=== PATIENT | female | born 1985 | race Asian ===

== ENCOUNTER 2019-01-26 14:06 | Inpatient (IN) | payer BC ==
[~2019-01-26] VITALS: Ht 154.9 cm; Wt 88.6 kg
[~2019-01-26 14:06] MED LIST: ACET-1600 PO; CALC300T5 PO; PREN1TAB10 PO
[2019-01-26 15:40] LABS: MICROSCOPIC NOT IND
[2019-01-26 15:50] LABS: CREATININE,URINE RANDOM 19.1 mg/dL
[2019-01-26 16:11] VITALS: BP 150/70
[2019-01-26 16:13] LABS: BASOPHILS # (AUTO) 0.03 x10^3/uL (0-0.1); BASOPHILS % (AUTO) 0 % (0-1); EOSINOPHILS # (AUTO) 0.03 x10^3/uL (0-0.4); EOSINOPHILS % (AUTO) 0 % (1-7); LYMPHOCYTES # (AUTO) 2.12 x10^3/uL (1-3.4); LYMPHOCYTES % (AUTO) 22 % (22-44); MD NO; MEAN CORPUSCULAR HEMOGLOBIN 33.8 pg (27.0-34.8); MEAN CORPUSCULAR HGB CONC 33.6 g/dL (32.4-35.8); MEAN CORPUSCULAR VOLUME 100.6 fL (80-100); MEAN PLATELET VOLUME 7.8 fL (7.4-10.4); MONOCYTES # (AUTO) 0.83 x10^3/uL (0.2-0.8); MONOCYTES % (AUTO) 8 % (2-9); NEUTROPHILS # (AUTO) 6.86 x10^3/uL (1.8-6.8); NEUTROPHILS % (AUTO) 70 % (42-75); PLATELET COUNT 273 x10^3/uL (130-400); RED BLOOD COUNT 3.62 x10^6/uL (3.82-5.3); RED CELL DISTRIBUTION WIDTH 14.1 % (9.6-15.2)
[2019-01-26 16:20] LABS: ALANINE AMINOTRANSFERASE 16 U/L (12-78); ALBUMIN 2.4 g/dL (3.4-5.0); ANION GAP 9 mmol/L (5-15); CALCIUM 8.5 mg/dL (8.5-10.1); CHLORIDE 112 mmol/L (98-107); CREATININE 0.64 mg/dL (0.55-1.02)
[2019-01-26 16:29] LABS: ALKALINE PHOSPHATASE 88 U/L (45-117); BILIRUBIN,TOTAL 0.5 mg/dL (0.2-1.0)
[2019-01-26 16:30] LABS: BILIRUBIN, DIRECT < 0.1 mg/dL (0.1-0.2)
[2019-01-26] MEDS ORDERED: BETAMETHASONE 6 MG/ML, 5ML IM ONE ×2 (17:59→18:00)
[2019-01-26] MEDS ORDERED: LABETALOL 100 MG TABLET ONE (22:54)
[2019-01-26] MEDS: LABETALOL 100 MG TABLET PO SCH (22:57)
[2019-01-27 07:35] VITALS: BP 139/76
[2019-01-27 07:39] LABS: BASOPHILS % (AUTO) 0 % (0-1); EOSINOPHILS % (AUTO) 0 % (1-7); LYMPHOCYTES # (AUTO) 1.34 x10^3/uL (1-3.4); LYMPHOCYTES % (AUTO) 11 % (22-44); MD NO; MEAN CORPUSCULAR HGB CONC 33.6 g/dL (32.4-35.8); MEAN CORPUSCULAR VOLUME 101.2 fL (80-100); MONOCYTES # (AUTO) 0.38 x10^3/uL (0.2-0.8); MONOCYTES % (AUTO) 3 % (2-9); NEUTROPHILS # (AUTO) 10.49 x10^3/uL (1.8-6.8); NEUTROPHILS % (AUTO) 86 % (42-75); PLATELET COUNT 272 x10^3/uL (130-400); RED BLOOD COUNT 3.77 x10^6/uL (3.82-5.3); RED CELL DISTRIBUTION WIDTH 13.9 % (9.6-15.2)
[2019-01-27 07:47] LABS: CHLORIDE 111 mmol/L (98-107)
[2019-01-27 07:55] LABS: ALANINE AMINOTRANSFERASE 13 U/L (12-78); ALBUMIN 2.3 g/dL (3.4-5.0); ALKALINE PHOSPHATASE 86 U/L (45-117); ANION GAP 9 mmol/L (5-15); BILIRUBIN,TOTAL < 0.1 mg/dL (0.2-1.0); CALCIUM 8.6 mg/dL (8.5-10.1); CREATININE 0.61 mg/dL (0.55-1.02); TOTAL PROTEIN 5.9 g/dL (6.4-8.2)
[2019-01-27] MEDS ORDERED: LABETALOL 100 MG TABLET ONE ×2 (08:42→21:00)
[2019-01-27] MEDS: LABETALOL 100 MG TABLET PO SCH ×2 (08:46→21:02)
[2019-01-27] MEDS ORDERED: PRENATAL VIT/IRON/FA 1 EACH TABLET ONE (21:23)
[2019-01-27] MEDS ORDERED: DOCUSATE 100 MG CAPSULE ONE (21:24)
[2019-01-27] MEDS ORDERED: DOCUSATE 100 MG CAPSULE PO SCH (21:30)
[2019-01-27] MEDS ORDERED: PRENATAL VIT/IRON/FA 1 EACH TABLET PO SCH (21:30)
[2019-01-28] MEDS ORDERED: CALCIUM CARBONATE 500 MG TAB.CHEW PO PRN (03:30)
== END 2019-01-28 07:04 | disposition home or self-care (01) | DRG 833 ==
LOC: LDOP 14:06 → LDIP 17:43 → UNDOADMIN 17:51 → EDIP 01-27 17:29 → LDIP 01-27 17:31
PROVIDERS: ADMIT Obstetrics & Gynecology; ATTEND Obstetrics & Gynecology
DX: O13.3 Gestational [pregnancy-induced] hypertension without significant proteinuria, third trimester (principal); E78.00 Pure hypercholesterolemia, unspecified; F17.200 Nicotine dependence, unspecified, uncomplicated; O99.283 Endocrine, nutritional and metabolic diseases complicating pregnancy, third trimester; O99.333 Smoking (tobacco) complicating pregnancy, third trimester; Z3A.35 35 weeks gestation of pregnancy; Z90.49 Acquired absence of other specified parts of digestive tract
CPT/HCPCS: 36415; 76815; 76819; 80053; 81003; 81050; 82248; 82570; 84156; 84550; 85025; 86850; 86900; G0378; J0702

== ENCOUNTER 2019-02-02 08:33 | Inpatient (IN) | payer BC, OTHER ==
[~2019-02-02] VITALS: Ht 154.9 cm; Wt 90.0 kg
[2019-02-03] MEDS ORDERED: MISOPROSTOL 25 MCG TABLET ONE (21:06)
[2019-02-03] MEDS ORDERED: OXYTOCIN 30U/ 0.9% NaCL 500ML 500 ML IV ONE (21:08)
[2019-02-03] MEDS: D5%-LACTATED RINGERS 1,000 ML IV SCH (21:08)
[2019-02-03] MEDS ORDERED: OXYTOCIN 30U/ 0.9% NaCL 500ML 500 ML IV PRN (21:08)
[2019-02-03] MEDS ORDERED: NEWBORN KIT ONE (21:10)
[2019-02-03] MEDS ORDERED: LIDOCAINE 1%, 20ML ONE (21:11)
[2019-02-03] MEDS ORDERED: MISOPROSTOL 200 MCG TABLET ONE (21:11)
[2019-02-03 21:28] LABS: BASOPHILS # (AUTO) 0.03 x10^3/uL (0-0.1); BASOPHILS % (AUTO) 0 % (0-1); EOSINOPHILS % (AUTO) 2 % (1-7); LYMPHOCYTES # (AUTO) 2.54 x10^3/uL (1-3.4); LYMPHOCYTES % (AUTO) 23 % (22-44); MD NO; MEAN CORPUSCULAR HEMOGLOBIN 33.9 pg (27.0-34.8); MEAN CORPUSCULAR HGB CONC 33.5 g/dL (32.4-35.8); MEAN CORPUSCULAR VOLUME 101.4 fL (80-100); MEAN PLATELET VOLUME 7.7 fL (7.4-10.4); MONOCYTES # (AUTO) 0.71 x10^3/uL (0.2-0.8); MONOCYTES % (AUTO) 7 % (2-9); NEUTROPHILS # (AUTO) 7.36 x10^3/uL (1.8-6.8); NEUTROPHILS % (AUTO) 68 % (42-75); PLATELET COUNT 237 x10^3/uL (130-400); RED BLOOD COUNT 3.93 x10^6/uL (3.82-5.3); RED CELL DISTRIBUTION WIDTH 14.3 % (9.6-15.2)
[2019-02-03 21:30] VITALS: BP 178/91
[2019-02-03] MEDS ORDERED: PLEASE ENTER HEIGHT AND WEIGHT MC SCH (21:30)
[2019-02-03] MEDS ORDERED: FENTANYL PF 100 MCG/2ML IVPush PRN (21:30)
[2019-02-03] MEDS ORDERED: MISOPROSTOL 25 MCG TABLET VG PRN (21:30)
[2019-02-03] MEDS ORDERED: ONDANSETRON 2MG/ML, 2ML IVPush PRN (21:30)
[2019-02-03] MEDS ORDERED: FENTANYL PF 100 MCG/2ML IV PRN (21:30)
[2019-02-03] MEDS ORDERED: CALCIUM CARBONATE 500 MG TAB.CHEW PO PRN (21:30)
[2019-02-03] MEDS ORDERED: LABETALOL 100 MG TABLET ONE (21:43)
[2019-02-03] MEDS: LACTATED RINGERS 1,000 ML IV SCH (21:45)
[2019-02-03] MEDS: LABETALOL 100 MG TABLET PO SCH (21:46)
[2019-02-03 23:04] VITALS: BP 157/75
[2019-02-04] MEDS ORDERED: OXYTOCIN 30U/ 0.9% NaCL 500ML 500 ML IV PRN (02:01)
[2019-02-04] MEDS ORDERED: OXYTOCIN 30U/ 0.9% NaCL 500ML 500 ML ONE (02:03)
[2019-02-04] MEDS: D5%-LACTATED RINGERS 1,000 ML IV SCH (05:08)
[2019-02-04] MEDS: LACTATED RINGERS 1,000 ML IV SCH ×3 (05:55→19:58)
[2019-02-04] MEDS ORDERED: FENTANYL/BUPIV./NS/PF 250 ML EPIDCONT SCH ×2 (08:03→08:49)
[2019-02-04] MEDS ORDERED: FENTANYL PF 500 MCG, BUPIVACAINE/PF 0.5%, 30ML 62.5 ML in SODIUM CHLORIDE 0.9% 177.5 ML EPIDCONT SCH (08:30)
[2019-02-04] MEDS ORDERED: LACTATED RINGERS 1,000 ML IV SCH (08:49)
[2019-02-04] MEDS ORDERED: LABETALOL 100 MG TABLET ONE ×2 (08:53→16:53)
[2019-02-04] MEDS: LABETALOL 100 MG TABLET PO SCH ×2 (08:55→16:57)
[2019-02-04] MEDS ORDERED: BUPIVACAINE 0.25% ONE (08:55)
[2019-02-04] MEDS ORDERED: NALOXONE 0.4 MG/ML, 1ML IVPush PRN (09:00)
[2019-02-04] MEDS ORDERED: EPHEDRINE 50 MG/ML, 1ML IVPush PRN ×2 (09:00→19:30)
[2019-02-04] MEDS: LACTATED RINGERS 1,000 ML IVBOLUS PRN ×2 (09:46→19:04)
[2019-02-04] MEDS ORDERED: hydrALAzine 20 MG/ML, 1ML IVPush ONE (10:00)
[2019-02-04] MEDS ORDERED: SODIUM CITRATE/CITRIC ACID 15 ML UDC ONE (18:42)
[2019-02-04] MEDS ORDERED: METOCLOPRAMIDE 5 MG/ML, 2ML ONE (18:43)
[2019-02-04] MEDS ORDERED: METOCLOPRAMIDE 5 MG/ML, 2ML IV ONE (19:00)
[2019-02-04] MEDS ORDERED: SODIUM CITRATE/CITRIC ACID 15 ML UDC PO ONE (19:00)
[2019-02-04] MEDS ORDERED: KETOROLAC 30 MG/1 ML ONE (19:07)
[2019-02-04] MEDS ORDERED: PROPOFOL 10 MG/ML, 20ML ONE (19:07)
[2019-02-04] MEDS ORDERED: EPHEDRINE 50 MG/ML, 1ML ONE (19:07)
[2019-02-04] MEDS ORDERED: ONDANSETRON 2MG/ML, 2ML ONE (19:07)
[2019-02-04] MEDS ORDERED: DEXAMETHASONE 4 MG/ML, 1ML ONE (19:07)
[2019-02-04] MEDS ORDERED: PHENYLEPHRINE 10 MG/ML ONE (19:07)
[2019-02-04] MEDS ORDERED: CEFAZOLIN 1,000 MG ONE (19:07)
[2019-02-04] MEDS ORDERED: OXYTOCIN 10 UNITS/ML, 1ML ONE (19:07)
[2019-02-04] MEDS ORDERED: SUCCINYLCHOLINE 20 MG/ML, 10ML ONE (19:07)
[2019-02-04] MEDS ORDERED: FENTANYL PF 100 MCG/2ML ONE ×2 (19:07)
[2019-02-04] MEDS ORDERED: hydrALAzine 20 MG/ML, 1ML IV PRN (19:30)
[2019-02-04] MEDS ORDERED: MIDAZOLAM 1 MG/ML, 2ML IV PRN (19:30)
[2019-02-04] MEDS ORDERED: ONDANSETRON 2MG/ML, 2ML IVPush PRN (19:30)
[2019-02-04] MEDS ORDERED: HYDROmorphone 2 MG/ML, 1ML IVPush PRN (19:30)
[2019-02-04] MEDS ORDERED: ALBUTEROL SULFATE 2.5 MG/3 ML NPPB PRN (19:30)
[2019-02-04] MEDS ORDERED: FENTANYL PF 100 MCG/2ML IV PRN (19:30)
[2019-02-04] MEDS ORDERED: hydrALAzine 20 MG/ML, 1ML IVPush PRN (19:30)
[2019-02-04] MEDS ORDERED: LABETALOL 5MG/ML, 20ML IV PRN (19:30)
[2019-02-04] MEDS ORDERED: MEPERIDINE/PF 25MG/0.5ML IVPush PRN (19:30)
[2019-02-04] MEDS ORDERED: HYDROcodone/APAP 7.5-325MG/15ML UDC PO PRN (19:30)
[2019-02-04] MEDS ORDERED: PROMETHAZINE 25 MG/ML, 1ML IV PRN (19:30)
[2019-02-04] MEDS ORDERED: HYDROmorphone 2 MG/ML, 1ML ONE (19:49)
[2019-02-04] MEDS: OXYTOCIN 30U/ 0.9% NaCL 500ML 500 ML IV SCH (19:58)
[2019-02-04] MEDS ORDERED: MORPHINE SULFATE 4 MG/ML, 1ML IVPush PRN (20:00)
[2019-02-04] MEDS ORDERED: MISOPROSTOL 200 MCG TABLET PR PRN (20:00)
[2019-02-04] MEDS ORDERED: ONDANSETRON 2MG/ML, 2ML IV PRN (20:00)
[2019-02-04] MEDS ORDERED: MAGNESIUM SULFATE PMX 4GM/100M 100 ML ONE (20:54)
[2019-02-04] MEDS ORDERED: MAGNESIUM SULF. PMX 20GM/500ML 500 ML IV ONE (20:54)
[2019-02-04] MEDS ORDERED: MAGNESIUM SULFATE PMX 4GM/100M 100 ML IVPB ONE (21:00)
[2019-02-04] MEDS ORDERED: DEXTROSE 40%, 37.5 GM GEL ONE (21:15)
[2019-02-04] MEDS: MAGNESIUM SULF. PMX 20GM/500ML 500 ML IV SCH (21:43)
[2019-02-04] MEDS ORDERED: hydrALAzine 20 MG/ML, 1ML ONE (22:40)
[2019-02-04] MEDS ORDERED: OXYcodone 5 MG/5 ML ORAL.SOL UDC ONE (23:29)
[2019-02-04] MEDS: OXYcodone 5 MG/5 ML ORAL.SOL UDC PO PRN (23:32)
[2019-02-05] MEDS ORDERED: LABETALOL 100 MG TABLET ONE ×3 (01:50→16:38)
[2019-02-05] MEDS: LABETALOL 100 MG TABLET PO SCH ×3 (01:56→16:58)
[2019-02-05] MEDS: KETOROLAC 30 MG/1 ML IV SCH ×4 (02:00→18:02)
[2019-02-05] MEDS ORDERED: OXYcodone 5 MG/5 ML ORAL.SOL UDC ONE (02:46)
[2019-02-05] MEDS: OXYcodone 5 MG/5 ML ORAL.SOL UDC PO PRN (02:48)
[2019-02-05] MEDS: LACTATED RINGERS 1,000 ML IV SCH ×6 (03:58→19:58)
[2019-02-05] MEDS ORDERED: KETOROLAC 30 MG/1 ML ONE ×3 (05:48→17:57)
[2019-02-05 05:54] LABS: BASOPHILS # (AUTO) 0.01 x10^3/uL (0-0.1); BASOPHILS % (AUTO) 0 % (0-1); EOSINOPHILS % (AUTO) 0 % (1-7); LYMPHOCYTES # (AUTO) 1.78 x10^3/uL (1-3.4); LYMPHOCYTES % (AUTO) 11 % (22-44); MD NO; MEAN CORPUSCULAR HEMOGLOBIN 34.5 pg (27.0-34.8); MEAN CORPUSCULAR HGB CONC 34.1 g/dL (32.4-35.8); MEAN CORPUSCULAR VOLUME 101.2 fL (80-100); MEAN PLATELET VOLUME 7.5 fL (7.4-10.4); MONOCYTES # (AUTO) 0.82 x10^3/uL (0.2-0.8); MONOCYTES % (AUTO) 5 % (2-9); NEUTROPHILS # (AUTO) 13.14 x10^3/uL (1.8-6.8); NEUTROPHILS % (AUTO) 84 % (42-75); PLATELET COUNT 204 x10^3/uL (130-400); RED CELL DISTRIBUTION WIDTH 14.3 % (9.6-15.2)
[2019-02-05] MEDS: OXYTOCIN 30U/ 0.9% NaCL 500ML 500 ML IV SCH ×2 (05:58→15:58)
[2019-02-05] MEDS ORDERED: OXYcodone/APAP 5/325MG TABLET ONE ×2 (07:45→15:39)
[2019-02-05] MEDS ORDERED: DOCUSATE 100 MG CAPSULE ONE ×2 (07:46→20:24)
[2019-02-05] MEDS ORDERED: MAGNESIUM SULF. PMX 20GM/500ML 500 ML IV ONE ×2 (07:46→17:57)
[2019-02-05] MEDS ORDERED: PRENATAL VIT/IRON/FA 1 EACH TABLET ONE (07:46)
[2019-02-05] MEDS: MAGNESIUM SULF. PMX 20GM/500ML 500 ML IV SCH ×2 (07:49→18:02)
[2019-02-05] MEDS: DOCUSATE 100 MG CAPSULE PO PRN ×2 (07:49→21:01)
[2019-02-05] MEDS: PRENATAL VIT/IRON/FA 1 EACH TABLET PO SCH (07:49)
[2019-02-05] MEDS: OXYcodone/APAP 5/325MG TABLET PO PRN ×3 (07:49→23:45)
[2019-02-05 07:51] VITALS: BP 138/67
[2019-02-05 21:00] VITALS: BP 113/70
[2019-02-06] VITALS (7 sets, daily range): BP systolic 117–158; BP diastolic 65–85
[2019-02-06] MEDS: OXYcodone/APAP 5/325MG TABLET PO PRN ×5 (00:05→20:56)
[2019-02-06] MEDS: KETOROLAC 30 MG/1 ML IV SCH ×4 (01:08→13:33)
[2019-02-06] MEDS: LABETALOL 100 MG TABLET PO SCH ×3 (01:08→20:56)
[2019-02-06] MEDS: OXYTOCIN 30U/ 0.9% NaCL 500ML 500 ML IV SCH ×3 (01:58→21:58)
[2019-02-06] MEDS: LACTATED RINGERS 1,000 ML IV SCH ×3 (01:58→21:58)
[2019-02-06] MEDS: MAGNESIUM SULF. PMX 20GM/500ML 500 ML IV SCH (02:37)
[2019-02-06] MEDS: PRENATAL VIT/IRON/FA 1 EACH TABLET PO SCH (09:36)
[2019-02-06] MEDS: DOCUSATE 100 MG CAPSULE PO PRN ×2 (09:36→19:51)
[2019-02-06] MEDS: IBUPROFEN 600 MG TABLET PO PRN (19:51)
[2019-02-07] VITALS (9 sets, daily range): BP systolic 129–161; BP diastolic 75–91
[2019-02-07] MEDS: OXYcodone/APAP 5/325MG TABLET PO PRN ×3 (01:19→04:59)
[2019-02-07] MEDS: IBUPROFEN 600 MG TABLET PO PRN (01:19)
[2019-02-07] MEDS: OXYTOCIN 30U/ 0.9% NaCL 500ML 500 ML IV SCH ×2 (07:58→17:58)
[2019-02-07] MEDS: LACTATED RINGERS 1,000 ML IV SCH ×2 (07:58→17:58)
[2019-02-07] MEDS: PRENATAL VIT/IRON/FA 1 EACH TABLET PO SCH (08:56)
[2019-02-07] MEDS: LABETALOL 100 MG TABLET PO SCH ×2 (08:56→21:06)
[2019-02-07] MEDS: ACETAMINOPHEN 325 MG TABLET PO PRN ×3 (08:56→18:35)
[2019-02-07] MEDS: DOCUSATE 100 MG CAPSULE PO PRN ×2 (08:56→21:06)
[2019-02-07] MEDS: OXYcodone IR 5MG TABLET PO PRN ×4 (08:56→22:48)
[2019-02-07] MEDS ORDERED: SIMETHICONE 80 MG CHEW TAB ONE (22:47)
[2019-02-07] MEDS: SIMETHICONE 80 MG CHEW TAB PO PRN (22:48)
[2019-02-08] VITALS (7 sets, daily range): BP systolic 120–176; BP diastolic 67–95
[2019-02-08] MEDS: ACETAMINOPHEN 325 MG TABLET PO PRN ×4 (02:39→16:14)
[2019-02-08] MEDS: OXYcodone IR 5MG TABLET PO PRN ×5 (02:39→21:16)
[2019-02-08] MEDS: LACTATED RINGERS 1,000 ML IV SCH ×3 (03:58→23:58)
[2019-02-08] MEDS: OXYTOCIN 30U/ 0.9% NaCL 500ML 500 ML IV SCH ×2 (03:58→13:58)
[2019-02-08] MEDS: SIMETHICONE 80 MG CHEW TAB PO PRN (06:08)
[2019-02-08] MEDS: DOCUSATE 100 MG CAPSULE PO PRN (07:39)
[2019-02-08] MEDS: LABETALOL 100 MG TABLET PO SCH ×3 (07:39→23:38)
[2019-02-08] MEDS: PRENATAL VIT/IRON/FA 1 EACH TABLET PO SCH (07:39)
[2019-02-08] MEDS ORDERED: niFEDipine ER 30 MG TABLET.ER ONE (14:43)
[2019-02-08] MEDS: niFEDipine ER 30 MG TABLET.ER PO SCH (15:02)
[2019-02-08] MEDS: IBUPROFEN 600 MG TABLET PO PRN (19:48)
[2019-02-09] MEDS: OXYTOCIN 30U/ 0.9% NaCL 500ML 500 ML IV SCH (02:10)
[2019-02-09] MEDS: IBUPROFEN 600 MG TABLET PO PRN ×2 (04:40→14:05)
[2019-02-09 04:42] VITALS: BP 134/86
[2019-02-09 07:30] VITALS: BP 145/70
[2019-02-09] MEDS: DOCUSATE 100 MG CAPSULE PO PRN (08:07)
[2019-02-09] MEDS: niFEDipine ER 30 MG TABLET.ER PO SCH (08:07)
[2019-02-09] MEDS: PRENATAL VIT/IRON/FA 1 EACH TABLET PO SCH (08:07)
[2019-02-09] MEDS: LABETALOL 100 MG TABLET PO SCH (08:07)
[2019-02-09] MEDS ORDERED: OXYcodone IR 5MG TABLET ONE (08:12)
[2019-02-09] MEDS: OXYcodone IR 5MG TABLET PO PRN (08:14)
[2019-02-09 12:21] VITALS: BP 119/78
[2019-02-09] MEDS: OXYcodone/APAP 5/325MG TABLET PO PRN (12:36)
[2019-02-09] MEDS ORDERED: IBUP-1222 PO (12:50)
[2019-02-09] MEDS ORDERED: OXYC-302 PO (12:50)
[2019-02-09] MEDS ORDERED: LABE100T6 PO (12:51)
[2019-02-09] MEDS ORDERED: NIFE30TA2 PO (12:53)
== END 2019-02-09 18:26 | disposition home or self-care (01) | DRG 788 ==
LOC: UNDOADMIN 08:33 → LDIP 08:33 → 2NE 02-04 21:53 → 2NW 02-05 23:09
PROVIDERS: ADMIT Obstetrics & Gynecology; ATTEND Obstetrics & Gynecology
PROC: 10D00Z1 Extraction of Products of Conception, Low, Open Approach (ICD-10-PCS; principal; 2019-02-04)
DX: O14.94 Unspecified pre-eclampsia, complicating childbirth (principal); O61.9 Failed induction of labor, unspecified; E16.2 Hypoglycemia, unspecified; O99.285 Endocrine, nutritional and metabolic diseases complicating the puerperium; Z37.0 Single live birth; Z3A.37 37 weeks gestation of pregnancy; Z88.0 Allergy status to penicillin; Z88.6 Allergy status to analgesic agent
CPT/HCPCS: 36415; S0020; 83735; 85025; 86850; 86900; G0378; J0690; J1100; J1170; J1885; J2405; J2704; J3010; J0330; J0360; J2370; J2590; J2765; J3475; J7050; J7120

== ENCOUNTER 2020-03-23 10:04 | Inpatient (IN) | payer BC ==
[~2020-03-23] VITALS: Ht 154.9 cm; Wt 92.4 kg
[~2020-03-23 10:04] MED LIST changes: +IBUP-1222 PO; +LABE100T6 PO; +NIFE30TA2 PO; +OXYC-302 PO
[2020-03-23 10:43] VITALS: BP 107/56
[2020-03-23] MEDS ORDERED: PREN1TAB60 PO (11:00)
[2020-03-23] MEDS ORDERED: ASPI-515 PO (11:00)
[2020-03-23] MEDS ORDERED: ACETAMINOPHEN 325 MG TABLET PO STA (11:05)
[2020-03-23 11:07] LABS: MICROSCOPIC NOT IND
[2020-03-23] MEDS ORDERED: ACETAMINOPHEN 325 MG TABLET ONE (11:12)
[2020-03-23 11:14] LABS: BASOPHILS # (AUTO) 0.03 x10^3/uL (0-0.1); BASOPHILS % (AUTO) 0 % (0-1); EOSINOPHILS # (AUTO) 0.26 x10^3/uL (0-0.4); EOSINOPHILS % (AUTO) 3 % (1-7); LYMPHOCYTES # (AUTO) 1.88 x10^3/uL (1-3.4); LYMPHOCYTES % (AUTO) 18 % (22-44); MD NO; MEAN CORPUSCULAR HEMOGLOBIN 31.9 pg (27.0-34.8); MEAN CORPUSCULAR HGB CONC 33.5 g/dL (32.4-35.8); MEAN PLATELET VOLUME 6.8 fL (7.4-10.4); MONOCYTES # (AUTO) 0.58 x10^3/uL (0.2-0.8); MONOCYTES % (AUTO) 6 % (2-9); NEUTROPHILS # (AUTO) 7.71 x10^3/uL (1.8-6.8); NEUTROPHILS % (AUTO) 74 % (42-75); PLATELET COUNT 332 x10^3/uL (130-400); RED BLOOD COUNT 3.58 x10^6/uL (3.82-5.3); RED CELL DISTRIBUTION WIDTH 13.8 % (9.6-15.2)
[2020-03-23 11:22] LABS: ALANINE AMINOTRANSFERASE 11 U/L (12-78); ALBUMIN 2.6 g/dL (3.4-5.0); ANION GAP 7 mmol/L (5-15); CALCIUM 8.9 mg/dL (8.5-10.1); CHLORIDE 110 mmol/L (98-107); CREATININE 0.48 mg/dL (0.55-1.02)
[2020-03-23 11:24] LABS: ALKALINE PHOSPHATASE 92 U/L (45-117); BILIRUBIN,TOTAL 0.2 mg/dL (0.2-1.0); TOTAL PROTEIN 6.6 g/dL (6.4-8.2)
[2020-03-23 12:13] LABS: CREATININE,URINE RANDOM 23.3 mg/dL
[2020-03-23 13:55] VITALS: BP 114/59
[2020-03-23 14:00] VITALS: BP 111/59
[2020-03-23] MEDS ORDERED: ACETAMINOPHEN 325 MG TABLET PO PRN (14:00)
[2020-03-23] MEDS ORDERED: DOCUSATE 100 MG CAPSULE PO PRN (14:00)
[2020-03-23] MEDS ORDERED: BETAMETHASONE 6 MG/ML, 5ML IM ONE (14:06)
[2020-03-23] MEDS: BETAMETHASONE 6 MG/ML, 5ML IM SCH (14:07)
[2020-03-24 05:55] LABS: BASOPHILS # (AUTO) 0.01 x10^3/uL (0-0.1); BASOPHILS % (AUTO) 0 % (0-1); EOSINOPHILS % (AUTO) 1 % (1-7); LYMPHOCYTES # (AUTO) 1.91 x10^3/uL (1-3.4); LYMPHOCYTES % (AUTO) 13 % (22-44); MD NO; MEAN CORPUSCULAR HGB CONC 33.5 g/dL (32.4-35.8); MEAN CORPUSCULAR VOLUME 95.4 fL (80-100); MEAN PLATELET VOLUME 7.3 fL (7.4-10.4); MONOCYTES # (AUTO) 0.71 x10^3/uL (0.2-0.8); MONOCYTES % (AUTO) 5 % (2-9); NEUTROPHILS # (AUTO) 11.84 x10^3/uL (1.8-6.8); NEUTROPHILS % (AUTO) 81 % (42-75); PLATELET COUNT 351 x10^3/uL (130-400); RED BLOOD COUNT 3.64 x10^6/uL (3.82-5.3); RED CELL DISTRIBUTION WIDTH 13.8 % (9.6-15.2)
[2020-03-24 06:00] LABS: ALBUMIN 2.6 g/dL (3.4-5.0); ANION GAP 9 mmol/L (5-15); CALCIUM 9.6 mg/dL (8.5-10.1); CHLORIDE 109 mmol/L (98-107)
[2020-03-24 06:03] LABS: ALANINE AMINOTRANSFERASE 13 U/L (12-78); ALKALINE PHOSPHATASE 94 U/L (45-117); BILIRUBIN,TOTAL 0.3 mg/dL (0.2-1.0); CREATININE 0.54 mg/dL (0.55-1.02); TOTAL PROTEIN 6.8 g/dL (6.4-8.2)
[2020-03-24 06:15] LABS: BILIRUBIN, DIRECT < 0.1 mg/dL (0.1-0.2)
[2020-03-24 07:27] VITALS: BP 119/72
[2020-03-24] MEDS ORDERED: PRENATAL VIT/IRON/FA 1 EACH TABLET HOMEMEDPO SCH ×2 (09:00→21:00)
[2020-03-24] MEDS ORDERED: ASPIRIN 81 MG TABLET CHEW HOMEMEDPO SCH ×2 (09:00→21:00)
[2020-03-24] MEDS: BETAMETHASONE 6 MG/ML, 5ML IM SCH (13:54)
[2020-03-25] MEDS ORDERED: ACETAMINOPHEN 500 MG TABLET ONE (07:47)
[2020-03-25] MEDS ORDERED: ACETAMINOPHEN 500 MG TABLET PO PRN (08:00)
== END 2020-03-25 10:21 | disposition home or self-care (01) | DRG 831 ==
LOC: LDOP 10:04 → LDIP 13:39
PROVIDERS: ADMIT Obstetrics & Gynecology; ATTEND Obstetrics & Gynecology
PROC: 3E0234Z Introduction of Serum, Toxoid and Vaccine into Muscle, Percutaneous Approach (ICD-10-PCS; principal; 2020-03-23)
DX: O34.211 Maternal care for low transverse scar from previous cesarean delivery (principal); O14.13 Severe pre-eclampsia, third trimester; O26.893 Other specified pregnancy related conditions, third trimester; Z3A.33 33 weeks gestation of pregnancy; Z67.11 Type A blood, Rh negative; Z88.6 Allergy status to analgesic agent; Z88.0 Allergy status to penicillin; K59.00 Constipation, unspecified; Z80.0 Family history of malignant neoplasm of digestive organs; Z87.891 Personal history of nicotine dependence
CPT/HCPCS: 36415; 80053; 81003; 82248; 82570; 84156; 84550; 85025; 85461; 86850; 86900; G0378; J0702; J2790

== ENCOUNTER 2020-04-23 09:13 | Inpatient (IN) | payer BC ==
[~2020-04-23] VITALS: Ht 154.9 cm; Wt 94.0 kg
[~2020-04-23 09:13] MED LIST changes: +ASPI-515 PO; +PREN1TAB60 PO
[2020-04-23] MEDS ORDERED: NEWBORN KIT ONE (10:23)
[2020-04-23] MEDS ORDERED: METOCLOPRAMIDE 5 MG/ML, 2ML ONE (10:23)
[2020-04-23] MEDS ORDERED: OXYTOCIN 30U/ 0.9% NaCL 500ML 500 ML ONE (10:24)
[2020-04-23] MEDS ORDERED: METOCLOPRAMIDE 5 MG/ML, 2ML IV ONE (10:30)
[2020-04-23] MEDS ORDERED: LACTATED RINGERS 1,000 ML IVBOLUS ONE (10:30)
[2020-04-23] MEDS ORDERED: SODIUM CITRATE/CITRIC ACID 30 ML UDC PO ONE (10:30)
[2020-04-23 10:55] LABS: BASOPHILS # (AUTO) 0.05 x10^3/uL (0-0.1); BASOPHILS % (AUTO) 0 % (0-1); EOSINOPHILS # (AUTO) 0.08 x10^3/uL (0-0.4); EOSINOPHILS % (AUTO) 1 % (1-7); LYMPHOCYTES # (AUTO) 1.56 x10^3/uL (1-3.4); LYMPHOCYTES % (AUTO) 14 % (22-44); MD NO; MEAN CORPUSCULAR HEMOGLOBIN 31.4 pg (27.0-34.8); MEAN CORPUSCULAR VOLUME 95.1 fL (80-100); MONOCYTES # (AUTO) 0.78 x10^3/uL (0.2-0.8); MONOCYTES % (AUTO) 7 % (2-9); NEUTROPHILS # (AUTO) 8.37 x10^3/uL (1.8-6.8); NEUTROPHILS % (AUTO) 77 % (42-75); PLATELET COUNT 374 x10^3/uL (130-400); RED BLOOD COUNT 3.74 x10^6/uL (3.82-5.3)
[2020-04-23] MEDS: LACTATED RINGERS 1,000 ML IV SCH ×3 (11:04→13:31)
[2020-04-23] MEDS ORDERED: FENTANYL PF 100 MCG/2ML ONE (11:47)
[2020-04-23] MEDS ORDERED: CEFAZOLIN 1,000 MG ONE (11:47)
[2020-04-23] MEDS ORDERED: OXYTOCIN 10 UNITS/ML, 1ML ONE ×2 (11:47→12:54)
[2020-04-23] MEDS ORDERED: EPHEDRINE 50 MG/ML, 1ML ONE (11:47)
[2020-04-23] MEDS ORDERED: EPINEPHRINE 1 MG/ML, 1ML ONE (11:47)
[2020-04-23] MEDS ORDERED: MISOPROSTOL 200 MCG TABLET PR PRN (12:30)
[2020-04-23] MEDS ORDERED: MEASLES,MUMPS&RUBELLA VACC/PF 0.5 ML SQ-VACC PRN (12:30)
[2020-04-23] MEDS ORDERED: RHOGAM FROM BLOOD BANK 1 NOTE EA IM/IV ONE (12:30)
[2020-04-23] MEDS ORDERED: ONDANSETRON 2MG/ML, 2ML IV PRN (12:30)
[2020-04-23] MEDS ORDERED: METHYLERGONOVINE 0.2 MG/ML IM PRN (12:30)
[2020-04-23] MEDS ORDERED: IBUPROFEN 600 MG TABLET PO PRN (12:30)
[2020-04-23] MEDS ORDERED: DIPH,PERTUSS(ACELL),TET VAC/PF NC IM-VACC PRN (12:30)
[2020-04-23] MEDS ORDERED: OXYcodone/APAP 5/325MG TABLET PO PRN (12:30)
[2020-04-23] MEDS ORDERED: CARBOPROST TROMETHAMINE 250 MCG/ML, 1ML IM PRN (12:30)
[2020-04-23] MEDS: OXYTOCIN 30U/ 0.9% NaCL 500ML 500 ML IV SCH ×2 (13:30→22:22)
[2020-04-23 16:00] VITALS: BP 118/72
[2020-04-23] MEDS: KETOROLAC 30 MG/1 ML IVPush SCH (18:30)
[2020-04-23 20:00] VITALS: BP 119/75
[2020-04-23] MEDS: DOCUSATE 100 MG CAPSULE PO PRN (20:22)
[2020-04-23] MEDS: OXYcodone IR 5MG TABLET PO PRN (20:22)
[2020-04-23 21:14] LABS: BASOPHILS # (AUTO) 0.05 x10^3/uL (0-0.1); BASOPHILS % (AUTO) 1 % (0-1); EOSINOPHILS # (AUTO) 0.16 x10^3/uL (0-0.4); EOSINOPHILS % (AUTO) 1 % (1-7); LYMPHOCYTES # (AUTO) 2.32 x10^3/uL (1-3.4); LYMPHOCYTES % (AUTO) 20 % (22-44); MD NO; MEAN CORPUSCULAR HEMOGLOBIN 31.7 pg (27.0-34.8); MEAN CORPUSCULAR HGB CONC 33.4 g/dL (32.4-35.8); MEAN CORPUSCULAR VOLUME 94.9 fL (80-100); MEAN PLATELET VOLUME 7.2 fL (7.4-10.4); MONOCYTES # (AUTO) 0.72 x10^3/uL (0.2-0.8); MONOCYTES % (AUTO) 6 % (2-9); NEUTROPHILS # (AUTO) 8.34 x10^3/uL (1.8-6.8); NEUTROPHILS % (AUTO) 72 % (42-75); PLATELET COUNT 329 x10^3/uL (130-400); RED BLOOD COUNT 3.55 x10^6/uL (3.82-5.3); RED CELL DISTRIBUTION WIDTH 14.4 % (9.6-15.2)
[2020-04-24 01:00] VITALS: BP 132/81
[2020-04-24] MEDS: KETOROLAC 30 MG/1 ML IVPush SCH ×2 (01:09→06:30)
[2020-04-24] MEDS: OXYcodone IR 5MG TABLET PO PRN ×7 (01:09→20:44)
[2020-04-24] MEDS: SIMETHICONE 80 MG CHEW TAB PO PRN ×2 (01:21→20:44)
[2020-04-24 04:30] VITALS: BP 114/71
[2020-04-24] MEDS: OXYTOCIN 30U/ 0.9% NaCL 500ML 500 ML IV SCH ×2 (08:22→18:22)
[2020-04-24 08:24] VITALS: BP 125/86
[2020-04-24] MEDS ORDERED: IBUPROFEN 600 MG TABLET ONE (08:24)
[2020-04-24] MEDS ORDERED: OXYcodone IR 5MG TABLET ONE (08:29)
[2020-04-24] MEDS: IBUPROFEN 600 MG TABLET PO PRN ×3 (08:31→20:44)
[2020-04-24] MEDS: DOCUSATE 100 MG CAPSULE PO PRN ×2 (08:31→20:44)
[2020-04-24] MEDS: ACETAMINOPHEN 325 MG TABLET PO PRN ×3 (08:31→20:44)
[2020-04-24] MEDS: PRENATAL VIT/IRON/FA 1 EACH TABLET PO SCH (08:31)
[2020-04-24] MEDS ORDERED: IBUPROFEN 600 MG TABLET PO PRN (19:00)
[2020-04-24 19:20] VITALS: BP 120/72
[2020-04-25] MEDS: OXYcodone IR 5MG TABLET PO PRN ×5 (00:17→20:19)
[2020-04-25] MEDS: IBUPROFEN 600 MG TABLET PO PRN (02:37)
[2020-04-25] MEDS: ACETAMINOPHEN 325 MG TABLET PO PRN (03:37)
[2020-04-25] MEDS: OXYTOCIN 30U/ 0.9% NaCL 500ML 500 ML IV SCH ×2 (04:22→14:22)
[2020-04-25] MEDS: DIPHENHYDRAMINE 25 MG CAPSULE PO PRN (07:06)
[2020-04-25 07:20] VITALS: BP 126/80
[2020-04-25] MEDS: ACETAMINOPHEN 325 MG TABLET PO SCH ×4 (08:12→20:18)
[2020-04-25] MEDS: IBUPROFEN 600 MG TABLET PO SCH ×3 (08:12→20:18)
[2020-04-25] MEDS: DOCUSATE 100 MG CAPSULE PO PRN ×2 (08:12→20:18)
[2020-04-25] MEDS: PRENATAL VIT/IRON/FA 1 EACH TABLET PO SCH (09:00)
[2020-04-25 20:00] VITALS: BP 131/84
[2020-04-26] MEDS: DIPHENHYDRAMINE 25 MG CAPSULE PO PRN (00:07)
[2020-04-26] MEDS: ACETAMINOPHEN 325 MG TABLET PO SCH ×2 (00:07→04:13)
[2020-04-26] MEDS: OXYTOCIN 30U/ 0.9% NaCL 500ML 500 ML IV SCH (00:22)
[2020-04-26] MEDS: IBUPROFEN 600 MG TABLET PO SCH (02:11)
[2020-04-26] MEDS: OXYcodone IR 5MG TABLET PO PRN ×2 (02:12→08:09)
[2020-04-26] MEDS ORDERED: DOCU-131 PO (07:05)
[2020-04-26] MEDS ORDERED: OXYC-302 PO (07:05)
[2020-04-26] MEDS ORDERED: IBUP-1222 PO (07:05)
[2020-04-26 08:00] VITALS: BP 122/76
[2020-04-26] MEDS: PRENATAL VIT/IRON/FA 1 EACH TABLET PO SCH (08:09)
[2020-04-26] MEDS: DOCUSATE 100 MG CAPSULE PO PRN (08:09)
== END 2020-04-26 09:55 | disposition home or self-care (01) | DRG 788 ==
LOC: LDIP 10:11 → 2NW 15:28
PROVIDERS: ADMIT Obstetrics & Gynecology; ATTEND Obstetrics & Gynecology
PROC: 10D00Z1 Extraction of Products of Conception, Low, Open Approach (ICD-10-PCS; principal; 2020-04-23)
PROC: 3E0234Z Introduction of Serum, Toxoid and Vaccine into Muscle, Percutaneous Approach (ICD-10-PCS; 2020-04-23)
DX: O14.14 Severe pre-eclampsia complicating childbirth (principal); O34.211 Maternal care for low transverse scar from previous cesarean delivery; O12.14 Gestational proteinuria, complicating childbirth; Z37.0 Single live birth; Z3A.37 37 weeks gestation of pregnancy; Z90.49 Acquired absence of other specified parts of digestive tract; Z88.5 Allergy status to narcotic agent; Z88.0 Allergy status to penicillin; Z23 Encounter for immunization; Z03.818 Encounter for observation for suspected exposure to other biological agents ruled out
CPT/HCPCS: 36415; 85025; 86592; 86850; 86900; 87635; G0378; J0171; J0690; J1885; J3010; J2590; J2765; J7120; Q0163